=== PATIENT | female | born 1975 | race Caucasian/White ===

== ENCOUNTER 2016-12-03 01:19 | Emergency (ER) | payer OTHER, MEDICAID ==
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
[2016-12-03] MEDS ORDERED: fentaNYL-PF 50 mCg/mL 2 mL Inj IVPUSH PRN (01:20)
[2016-12-03] MEDS ORDERED: Ondansetron 2 mg/mL 2 mL Inj IVPUSH ONE (01:20)
[2016-12-03 01:38] LABS: EOSINOPHILS % (AUTO) 2.9 % (0-5); MONOCYTES % (AUTO) 6.2 % (4-12); Mean Corpuscular Hemoglobin 31.1 pg (27.0-35.0); Mean Corpuscular Volume 94.1 fL (81-100); NEUTROPHILS % (AUTO) 57.5 % (40-74); Platelet Count 475 bil/L (150-400)
[2016-12-03] MEDS ORDERED: _HYDROcodone/APAP 5-325 mg Tablet PO PRN (02:50)
[2016-12-03] MEDS ORDERED: HYDR-4003 PO (02:54)
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
[2016-12-03 04:27] VITALS: BP 94/44; PULSE 67; RESP 19; O2SAT 96
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
== END 2016-12-03 04:25 | disposition home or self-care (01) ==
LOC: SED 01:19
DX: S09.8XXA Other specified injuries of head, initial encounter (principal); S16.1XXA Strain of muscle, fascia and tendon at neck level, initial encounter; S20.219A Contusion of unspecified front wall of thorax, initial encounter; V43.62XA Car passenger injured in collision with other type car in traffic accident, initial encounter; Y93.89 Activity, other specified; Y92.410 Unspecified street and highway as the place of occurrence of the external cause; Y99.8 Other external cause status; Z88.0 Allergy status to penicillin
CPT/HCPCS: 36415; 70450; 71010; 72125; 74177; 80053; 81002; 84702; 85025; 99284; G0480; Q9967